=== PATIENT | female | born 1960 | race Two or more races ===

== ENCOUNTER 2021-12-30 13:20 | Emergency (ER) | payer SELFPAY ==
[~2021-12-30] VITALS: Ht 162.6 cm; Wt 102.8 kg
[2021-12-30 13:25] VITALS: BP 123/74
[2021-12-30] MEDS ORDERED: SULF1TAB24 PO (14:30)
[2021-12-30] MEDS ORDERED: CEPH500C PO (14:30)
--- NOTE | 2021-12-30 14:33 | PHYS DOC ---
Past Medical History Past Surgical History: No Surgical History General Adult EDM: Chief Complaint: UPPER EXTREMITY SWELLING HPI: HPI: Patient is a 61 year old female who presents with right hand swelling status post cat bite yesterday. Patient states she has several animals at home, and yesterday one of her cats bit her right hand below her thumb. Today, she notes some mild pain, swelling and erythema. Additionally, the erythema runs up her forearm. Patient denies fever, chills, weakness or any other complaints. Review of Systems: Review of Systems: Constitutional: See HPI Eyes: Denies change in visual acuity, visual field deficits or discharge HENT: Denies ear pain, nasal congestion or sore throat Respiratory: Denies cough or shortness of breath Cardiovascular: Denies chest pain, palpitations or edema GI: Denies abdominal pain, nausea, vomiting, bloody stools or diarrhea : Denies dysuria or hematuria Musculoskeletal: See HPI Integument: See HPI Neurologic: Denies headache, focal weakness or sensory changes Heart Score: C/O Chest Pain: No Physical Exam: PE: Constitutional: Obese, no acute distress, non-toxic appearance. HENT: Normocephalic, atraumatic, bilateral external ears normal, nose normal. Eyes: EOMI, conjunctiva normal, no discharge. Neck: Normal range of motion, no stridor. Skin: 2 small puncture wounds noted to the thenar eminence of the right hand with adjacent linear abrasion, erythematous linear tracks extending proximally up the forearm. Skin otherwise warm, dry, no erythema, no rash. Extremities: Thenar eminence of the right hand markedly swollen with overlying t enderness, see above for skin examination. Extremities otherwise no tenderness, no cyanosis, no clubbing, ROM intact, no edema. Neurologic: Alert and oriented x4, no focal deficits noted. Current Patient Data: Vital Signs: Vital Signs Date Time Temp Pulse Resp B/P (MAP) Pulse Ox O2 Delivery O2 Flow Rate FiO2 12/30/21 13:25 98.3 74 18 123/74 (90) 96 Room Air 98.3 Course & Med Decision Making: Course & Med Decision Making Pertinent Labs and Imaging studies reviewed. (See chart for details) Patient is a 61-year-old female who presents with a cat bite that she sustained yesterday that appears to be severely infected at this point. Discussed with the patient that she would need to stay at the hospital for IV antibiotics and to ensure that the infection had not spread to her bloodstream. Patient states that she wants to go home and arrange a few things, including the care of her animals, before being admitted to the hospital. She requests oral antibiotics, but I stated that the antibiotic she requires at this point are stronger and only are administered IV. I informed the patient that should she leave and come back, we may not have beds available or the wait could be incredibly long. I encouraged her to remain in the department and call a family member or friend to make arrangements in her home and bring her any personal items she might need. I stressed to her the importance of containing the infection, as it has progressed very quickly. Informed the patient that infection with which it seems she has can be fatal, spreading to brain, heart or lungs. Advised patient that were she to leave the department now without antibiotic treatment and further evaluation, she could experience many complications including but not limited to worsening of her condition, spread of the infection, permanent disability and/or . We also had patient's friend, who drove her to the emergency department, come back and encourage her to stay as well. These attempts were unsuccessful. I did prescribe oral antibiotics for the patient, though I advised her that these would not be sufficient to cure the infection. Patient is alert and oriented x4 and is of sound mind. She did agree to sign paperwork to leave AGAINST MEDICAL ADVICE. As the patient is refusing to stay in the hospital at this time, I encouraged the patient to make her arrangements and present back to the emergency department right away. Diego Disclaimer: Diego Disclaimer: This electronic medical record was generated, in whole or in part, using a voice recognition dictation system. Departure Departure Impression: Primary Impression: Left against medical advice Additional Impressions: Cat bite of right hand with infection Qualified Codes: S61.451A - Open bite of right hand, initial encounter; L08.9 - Local infection of the skin and subcutaneous tissue, unspecified; W55.01XA - Bitten by cat, initial encounter Acute lymphangitis of right forearm Disposition: LEFT AGAINST MEDICAL ADVICE Condition: GUARDED Referrals: UNKNOWN PCP NAME (PCP) Patient Instructions: Animal Bite, [id number] Additional Instructions: Patient does not wish to proceed with medical care recommended by myself. Patient given information related to possible complications, up to and including , which could occur as a result of leaving the hospital at this time. Patient verbalizes understanding of risks involved due to leaving against medical advice. Patient has singned AMA form. Scripts Cephalexin (KEFLEX) 500 Mg Capsule 1 CAP PO BID, #20 CAP Prov: KATERINE KLEIN 12/30/21 Sulfamethoxazole/Trimethoprim (BACTRIM DS TABLET) 1 Each Tablet 1 TAB PO BID for 10 Days, #20 TAB 0 Refills Prov: KATERINE KLEIN 12/30/21 KATERINE KLEIN Dec 30, 2021 14:33
== END 2021-12-30 14:10 | disposition left against medical advice (07) ==
LOC: ER 13:20
DX: S61.451A Open bite of right hand, initial encounter (principal); L08.9 Local infection of the skin and subcutaneous tissue, unspecified; L03.123 Acute lymphangitis of right upper limb; W55.01XA Bitten by cat, initial encounter; Y93.89 Activity, other specified; Y92.89 Other specified places as the place of occurrence of the external cause; Y99.8 Other external cause status
CPT/HCPCS: 99283